=== PATIENT | female | born 1945 | race Caucasian/White ===

== ENCOUNTER → 2016-02-09 | Outpatient (CLI) | payer OTHER, BC ==
[~2016-02-09] MED LIST: ASPI-461 PO; ATOR-22 PO; CHOL20009 PO; CLON1TAB3 PO; GLUCTAB7 PO; HYDR-5688 PO; MELATAB2 PO; OXYB5TAB74 PO
--- NOTE | 2016-02-09 15:51 | DIAGNOSTIC IMAGING REPORT ---
RIGHT SHOULDER 3 VIEWS CLINICAL HISTORY: Right shoulder pain. FINDINGS: 3 views of the right shoulder are compared to study dated 02/24/2015. The skeletal structures are osteopenic. No acute fracture or dislocation is identified. A Hill-Sachs deformity is suggested in the humeral head. Arthritic change is seen in the greater tuberosity with bony sclerosis and subchondral cyst formation. The glenohumeral and acromioclavicular joints appear preserved. The overlying soft tissues are within normal limits. Imaged right upper lobe lung parenchyma appears clear. IMPRESSION: 1. No acute bony abnormality is seen in the right shoulder. 2. Question a chronic Hill-Sachs deformity in the humeral head. 3. Arthritic change in the greater tuberosity as above. Electronically signed by: Bethel Alejo M.D. 02/09/2016 3:49 PM
== END | disposition home or self-care (01) ==
LOC: C.RDSM 16:04
PROVIDERS: ATTEND Physical Medicine & Rehabilitation Sports Medicine
DX: M25.511 Pain in right shoulder (principal)

== ENCOUNTER → 2016-04-14 | Outpatient (CLI) | payer OTHER, BC ==
--- NOTE | 2016-04-15 13:16 | MAMMOGRAPHY REPORT ---
BILATERAL DIGITAL SCREENING MAMMOGRAM WITH CAD: 04/14/2016 TECHNIQUE: Current study was also evaluated with a Computer Aided Detection (CAD) system. Bilatera l CC and MLO views were obtained. COMPARISON: Comparison is made to exams dated: 04/01/2015 mammogram - [facility], 03/08/2014 mammogram, 02/13/2013 mammogram - [facility], and 01/21/2012 mammogram. BREAST COMPOSITION: There are scattered areas of fibroglandular density in both breasts. FINDINGS: No suspicious masses, calcifications, or areas of architectural distortion are noted in e ither breast. There has been no significant interval change compared to prior exams. IMPRESSION: ACR BI-RADS CATEGORY 1: NEGATIVE There is no mammographic evidence of malignancy. A 1 year screening mammogram is recommended. The p atient will receive written notification of the results. Approximately 10% of breast cancers are not detected with mammography. A negative mammographic repor t should not delay biopsy if a clinically suggestive mass is present. Daphne Gibson M.D. ah/:04/14/2016 16:57:24 Cook Ship: Muna VARELA)(B[place]), [facility] letter sent: Normal 1/2 BI-RADS Code: ACR BI-RADS Category 1: Negative
== END | disposition home or self-care (01) ==
LOC: C.MAMM 16:42
PROVIDERS: ATTEND Family Medicine
DX: Z12.31 Encounter for screening mammogram for malignant neoplasm of breast (principal)

== ENCOUNTER → 2016-05-12 | Outpatient (CLI) | payer OTHER, BC ==
[~2016-05-12] MED LIST changes: +DTR/5 PO; -OXYB5TAB74 PO
[2016-05-12 10:26] LABS: CHOLESTEROL/HDL RATIO 2.5
== END | disposition home or self-care (01) ==
LOC: C.LAB 08:51
PROVIDERS: ATTEND Internal Medicine Cardiovascular Disease
DX: E78.5 Hyperlipidemia, unspecified (principal)

== ENCOUNTER → 2016-05-24 | Outpatient (CLI) | payer OTHER, BC | END | disposition home or self-care (01) | LOC: C.RDSM 08:15 | PROVIDERS: ATTEND Physical Medicine & Rehabilitation Sports Medicine | DX: M25.542 Pain in joints of left hand (principal) ==

== ENCOUNTER 2016-07-12 01:35 | Emergency (ER) | payer OTHER, BC ==
[~2016-07-12] VITALS: Ht 167.6 cm; Wt 67.4 kg
[~2016-07-12 01:35] MED LIST changes: -MELATAB2 PO
[2016-07-12 01:37] VITALS: TEMP 36.3; Ht 167.6 cm; Wt 67.4 kg
[2016-07-12] MEDS ORDERED: HYDROmorphone INJ 2 MG/ML SYR/VIAL IM STA (02:07)
[2016-07-12] MEDS ORDERED: MELATAB2 PO (02:15)
--- NOTE | 2016-07-12 02:19 | EMERGENCY ROOM VISIT NOTE ---
History Report prepared by Charles: Mango Castillo Under the Supervision of: Dr. Felecia Miller D.O. First contact with patient: 01:46 Chief Complaint: BACK PAIN Stated Complaint: MUSCLE SPASMS IN BACK ON LEFT SIDE History of Present Illness The patient is a 71 year old female who presents to the Emergency Room with complaints of severe and persistent left sided back pain starting today. She has a history of muscle spasms which occur a few times a year. Her last episode of muscle spasms occurred a few months ago. The patient had been lifting heavy boxes and walking all day yesterday. She has worsening pain with sitting still. She applied a heating pad without relief. She denies neck pain, chest pain, abdominal pain, numbness, tingling, or any other complaints. Source of History: patient Onset: today Position: back (left side) Symptom Intensity: severe Timing: other (persistent) Modifying Factors (Worsening): other (sitting still) Modifying Factors (Relieving): heat (without relief) Associated Symptoms: No neck pain, No chest pain, No abdominal pain, No numbness Review of Systems See HPI for pertinent positives & negatives. A total of 10 systems reviewed and were otherwise negative. Past Medical & Surgical Medical Problems: (1) High cholesterol (2) Interstitial cystitis Family History Cancer Diabetes mellitus Heart disease Hypertension Social History Smoking Status: Never Smoker Marital Status: Housing Status: lives alone Occupation Status: retired Current/Historical Medications Scheduled Aspirin (Aspirin), 1 TAB PO HS Atorvastatin (Lipitor), 20 MG PO HS Cholecalciferol (Vitamin D), 2,000 UNIT PO HS Clonazepam (Klonopin), 1-2 MG PO HS Melatonin (Melatonin Maximum Strengt), 3 TAB PO HS Allergies Coded Allergies: Clindamycin (Verified Allergy, Unknown, RASH/ITCHING, 07/12/16) Physical Exam Vital Signs Date Time Temp Pulse Resp B/P (MAP) Pulse Ox O2 Delivery O2 Flow Rate FiO2 07/12/16 02:58 71 18 133/71 96 07/12/16 01:37 36.3 80 18 132/72 93 Room Air Physical Exam HEENT: Head - normocephalic and atraumatic Pupils are equal, round, and reactive to light. Extraocular eye muscles are intact, and sclera are anicteric. Nose - moist nasal mucosa without discharge. Mouth - moist buccal mucosa. Oropharynx is nonerythematous and there is no tonsillar exudate or edema noted. Neck: Supple; no JVD, nuchal rigidity, cervical lymphadenopathy. Heart: Regular rate and rhythm. There is a normal S1 and S2 with no murmurs, clicks, or gallops appreciated. Lungs: Clear to auscultation bilaterally with no wheezes, rales, or rhonchi. Abdomen: Soft, completely nontender, nondistended, with good bowel sounds. There are no palpable pulsatile masses or hepatosplenomegaly. There is no guarding, rigidity, or rebound noted. Back: Tenderness to palpation on the thoracic paraspinous muscles on the left. Extremities: No evidence of cyanosis, clubbing, or edema. There are easily palpable peripheral pulses. Skin: warm and dry with good turgor and no rashes. First degree burn on the left side of the back, just below the scapula. Medical Decision & Procedures Medications Administered Medications (Trade) Dose Ordered Sig/Carole Route Start Time Stop Time Status Last Admin Dose Admin Hydromorphone HCl (Dilaudid Inj) 2 mg NOW STAT IM 07/12/16 02:07 07/12/16 02:08 DC 07/12/16 02:13 2 MG Procedure Dilaudid Inj 2 mg IM ED Course 0146: Past medical records reviewed. The patient was evaluated in room B06. A complete history and physical exam was performed. Patient was found to have an elevated blood pressure and was referred to their primary doctor for recheck and further treatment. I attest that I have personally reviewed the patient's current medication list. 0207: Dilaudid Inj 2 mg IM 0245: Upon reevaluation, the patient is feeling much better. I discussed findings and results with her. She verbalized agreement of the treatment plan. The patient was discharged home. Medical Decision The patient presents to the Emergency Room with complaints of back pain. Differential diagnosis includes but is not limited to paraspinous muscle spasms , shingles, thermal burn, back strain. The patient did suffer a first degree burn to her back as a result of placing a heated Rice pack in that area. The patient does have of left-sided thoracic paraspinous muscle spasm. She describes having this in the past and was adequately treated with Dilaudid or Valium. This was many years ago. The patient was given a dose of IM Dilaudid which completely relieved her symptoms. She was encouraged to continue using Tylenol or IV for of an. I suggested that she avoid heavy lifting or significant physical activity over the next couple of days. Impression Primary Impression: Spasm of thoracic back muscle Scribe Attestation The scribe's documentation has been prepared under my direction and personally reviewed by me in its entirety. I confirm that the note above accurately reflects all work, treatment, procedures, and medical decision making performed by me. Departure Information Dispostion Home / Self-Care Referrals More Childress M.D. (PCP) Forms HOME CARE DOCUMENTATION FORM, IMPORTANT VISIT INFORMATION Patient Instructions Muscle Spasm, My [facility] Additional Instructions Rest. Avoid any further heavy lifting or packing over the next couple of dayas tylenol or motrin for pain
[2016-07-12 02:58] VITALS: BP 133/71; PULSE 71; O2SAT 96
== END 2016-07-12 02:59 | disposition home or self-care (01) ==
LOC: C.EDB 01:37
DX: M62.830 Muscle spasm of back (principal); E78.00 Pure hypercholesterolemia, unspecified; Z80.9 Family history of malignant neoplasm, unspecified; Z83.3 Family history of diabetes mellitus; Z82.49 Family history of ischemic heart disease and other diseases of the circulatory system; Z79.82 Long term (current) use of aspirin; Z79.899 Other long term (current) drug therapy

== ENCOUNTER → 2016-11-22 | Outpatient (CLI) | payer OTHER, BC ==
[~2016-11-22] MED LIST changes: -DTR/5 PO; -GLUCTAB7 PO; -HYDR-5688 PO; +MELATAB2 PO
[2016-11-22 11:23] LABS: ALT/SGPT 25 U/L (12-78); AST/SGOT 16 U/L (15-37); BLOOD UREA NITROGEN 16 mg/dl (7-18); BUN/CREATININE RATIO 23.2 (10-20); CALCIUM 9.2 mg/dl (8.5-10.1); CARBON DIOXIDE 29 mmol/L (21-32); CHLORIDE 105 mmol/L (98-107); CREATININE 0.69 mg/dl (0.60-1.20); GLUCOSE 91 mg/dl (70-99); POTASSIUM 4.1 mmol/L (3.5-5.1); SODIUM 140 mmol/L (136-145)
[2016-11-22 11:26] LABS: ALB/GLOB RATIO 1.2 (0.9-2); ALKALINE PHOSPHATASE 82 U/L (45-117); CHOLESTEROL 169 mg/dl (0-200); CHOLESTEROL/HDL RATIO 2.7; HDL CHOLESTEROL 63 mg/dl; LDL CHOLESTEROL CALCULATED 78 mg/dl; TRIGLYCERIDES 139 mg/dl (0-150); VERY LOW DENSITY LIPOPROT CALC 28 mg/dl
== END | disposition home or self-care (01) ==
LOC: C.LAB1850 08:55
PROVIDERS: ATTEND Internal Medicine Cardiovascular Disease
DX: E78.5 Hyperlipidemia, unspecified (principal)

== ENCOUNTER → 2017-04-11 | Outpatient (CLI) | payer OTHER, BC | END | disposition home or self-care (01) | LOC: C.RDSM 17:21 | PROVIDERS: ATTEND Family Medicine Sports Medicine | DX: M25.572 Pain in left ankle and joints of left foot (principal) ==

== ENCOUNTER → 2017-04-15 | Outpatient (CLI) | payer OTHER, BC ==
--- NOTE | 2017-04-15 13:54 | MAMMOGRAPHY REPORT ---
BILATERAL DIGITAL SCREENING MAMMOGRAM TOMOSYNTHESIS WITH CAD: 04/15/2017 CLINICAL HISTORY: Routine screening. Patient has no complaints. TECHNIQUE: Breast tomosynthesis in addition to standard 2D mammography was performed. Current study was also evaluated with a Computer Aided Detection (CAD) system. COMPARISON: Comparison is made to exams dated: 04/01/2015 mammogram - [facility], mammogram, 02/13/2013 mammogram - [facility], 01/21/2012 mammogram, and 12/08 mammogram. BREAST COMPOSITION: There are scattered areas of fibroglandular density in both breasts. FINDINGS: No suspicious masses, calcifications, or areas of architectural distortion are noted in ei ther breast. There has been no significant interval change compared to prior exams. IMPRESSION: ACR BI-RADS CATEGORY 1: NEGATIVE There is no mammographic evidence of malignancy. A 1 year screening mammogram is recommended. The pa tient will receive written notification of the results. Approximately 10% of breast cancers are not detected with mammography. A negative mammographic report should not delay biopsy if a clinically suggestive mass is present. Daphne Gibson M.D. /:04/15/2017 12:38:15 Customer Support Advisor: Muna CHEATHAM(Prince)([place]), [facility] letter sent: Normal 1/2 BI-RADS Code: ACR BI-RADS Category 1: Negative
== END | disposition home or self-care (01) ==
LOC: C.MAMM 09:59
PROVIDERS: ATTEND Family Medicine
DX: Z12.31 Encounter for screening mammogram for malignant neoplasm of breast (principal)